=== PATIENT | female | born 1950 | race Native Hawaiian/Other Pacific Islander ===

== ENCOUNTER 2021-03-24 07:56 | Outpatient (CLI) | payer MEDICARE, MEDICAID | END 2021-03-24 07:57 | disposition critical access hospital (66) | LOC: EMS 07:56 | DX: R47.81 Slurred speech (principal); R29.810 Facial weakness; R29.898 Other symptoms and signs involving the musculoskeletal system | CPT/HCPCS: A0425; A0429 ==

== ENCOUNTER 2021-03-24 08:09 | Emergency (ER) | payer MEDICARE, MEDICAID ==
--- NOTE | 2021-03-24 08:13 | ED Physician Documentation ---
PD HPI FOCAL NEURO - Stated complaint Stated Complaint: POSS STROKE - History obtained from History obtained from: Patient, EMS - History of Present Illness Timing - onset: Enter time (714), Today Timing - duration: Minutes Timing - details: Abrupt onset, Still present Severity of deficit: Severe Weakness: Face, Arm, Hand, Leg, Foot, Right Associated symptoms: No: Headache, Nausea / vomiting, Seizure, Syncope, Fall, Head injury, Chest pain, Neck pain, Back pain, Fever Baseline status: positive: A&OX3, ambulatory, indep Similar symptoms before: Has not had sx before Recently seen: Not recently seen - Additional information Additional information: Previously well 74-year-old female with a history of hypertension was cooking this morning when she took a step and developed left right-sided hemiparesis. She was attended to by her daughter who was in the room with her and the ambulance has been summoned to the home. She arrives to the emergency department with a right hemiparesis and with some mild dysarthria. Review of Systems Constitutional: denies: Fever Eyes: denies: Decreased vision Ears: denies: Ear pain Nose: denies: Congestion Throat: denies: Sore throat Cardiac: denies: Chest pain / pressure, Palpitations Respiratory: denies: Dyspnea, Cough GI: denies: Abdominal Pain, Nausea, Vomiting, Constipation, Diarrhea : reports: Frequency. denies: Dysuria Skin: denies: Rash Musculoskeletal: denies: Neck pain, Back pain, Extremity pain Neurologic: reports: Focal weakness. denies: Generalized weakness, Altered mental status, Headache, Head injury, LOC PD PAST MEDICAL HISTORY - Present Medications Home Medications: Ambulatory Orders Medication Instructions Recorded Confirmed Albuterol Sulfate [Albuterol 2 puffs IH QID #1 hfa.aer.ad 11/29/14 Sulfate Hfa] guaiFENesin/CODEINE [Robitussin AC] 10 ml PO Q6H PRN #240 ml 11/29/14 predniSONE [Deltasone] 40 mg PO DAILY 5 Days tablet 11/29/14 Hydrocodone/Acetaminophen [[place] 1 each PO Q6H PRN #15 tablet 06/25/16 5-325 Tablet] Ibuprofen 400 mg PO TID #15 tablet 06/25/16 Amlodipine Besylate [Norvasc] 1 tab PO DAILY 03/24/21 03/24/21 Aspirin EC [Ecotrin] 1 tab PO DAILY 03/24/21 03/24/21 Atorvastatin Calcium [Lipitor] 1 tab PO DAILY 03/24/21 03/24/21 Colchicine 1 tab PO DAILY PRN 03/24/21 03/24/21 Glimepiride [Amaryl] 1 tab PO BID 03/24/21 03/24/21 Pioglitazone [Actos] 1 tab PO DAILY 03/24/21 03/24/21 bisoproloL fumarate [Bisoprolol 1 tab PO DAILY 03/24/21 03/24/21 Fumarate] - Allergies Allergies/Adverse Reactions: Allergies Allergy/AdvReac Type Severity Reaction Status Date / Time Penicillins Allergy Unknown Verified 03/24/21 09:30 PD ED PE NORMAL - General General: Alert and oriented X 3, No acute distress, Well developed/nourished - HEENT HEENT: Atraumatic, PERRL, EOMI - Neck Neck: Supple, no meningeal sign, No bony TTP - Cardiac Cardiac: RRR, No murmur - Respiratory Respiratory: No respiratory distress - Abdomen Abdomen: Soft, Non tender - Back Back: No CVA TTP, No spinal TTP - Extremities Extremities: No deformity, No edema - Neuro Neuro: Alert and oriented X 3, No motor deficit, No sensory deficit, Other (Left jessica-paresis is apparent, withdrawn with quiet speech. ) Eye Opening: Spontaneous Motor: Obeys Commands Verbal: Oriented GCS Score: 15 - Psych Psych: Normal mood, Normal affect NIHSS - Time Time: 08:09 - Level of Consciousness Level of consciousness: (0) Alert, Keenly responsive LOC Questions: (0) Answers both Q's correct LOC Commands: (0) Performs both correctly - Gaze Best Gaze: (0) Normal - Visual Visual: (0) No loss - Facial Palsy Facial Palsy: (1) Minor paralysis - Motor Arms (both separate) Motor Arm (right): (3) No effort against gravity Motor Arm (left): (0) No drift - Motor Legs (both separate) Motor Leg (right): (0) No drift Motor Leg (left): (3) No effort against gravity - Limb Ataxia Limb Ataxia: (2) Present in 2 limbs - Sensory Sensory: (0) Normal - Best Language Best Language: (0) No aphasia - Dysarthria Dysarthria: (1) [id number] dysarthria - Extinction and Inattention (formally neg Extinction and inattention: (1) Visual,tactile,auditory,spatial, or personal inattention - Total Score/Results Total Score/Result: 11 Results - Vitals Vitals: Vital Signs - 24 hr 03/24/21 03/24/21 03/24/21 08:08 08:35 09:27 Temperature 36.6 C Heart Rate 85 82 80 Respiratory 17 18 15 Rate Blood Pressure 185/100 H 183/80 H 166/85 H O2 Saturation 96 98 03/24/21 09:41 Temperature Heart Rate 77 Respiratory 12 Rate Blood Pressure 170/84 H O2 Saturation 97 Oxygen O2 Source Room air - EKG (time done) 0822 Rate: Rate (enter#) (86) Rhythm: LAE Cadet: Anterior hemiblock Intervals: Prolonged QT (borderline) Ischemia: Normal ST segments Compare to prior EKG: Old EKG unavailable Computer interpretation: Agree with computer - Labs Labs: Laboratory Tests 03/24/21 03/24/21 03/24/21 08:40 08:40 08:40 WBC 7.3 RBC 4.28 Hgb 13.3 Hct 40.4 MCV 94.4 MCH 31.1 H MCHC 32.9 RDW 13.4 Plt Count 176 MPV 11.2 H Neut # (Auto) 3.8 Lymph # (Auto) 2.4 [place] # (Auto) 0.5 Eos # (Auto) 0.5 Baso # (Auto) 0.1 Absolute Nucleated RBC 0.00 Nucleated RBC % 0.0 Sodium 134 L Potassium 3.7 Chloride 103 Carbon Dioxide 23 Anion Gap 8.0 BUN 38 H Creatinine 1.8 H Estimated GFR (MDRD) 28 L Glucose 153 H Calcium 8.5 Total Bilirubin 0.8 AST 32 ALT 25 Alkaline Phosphatase 61 Total Protein 7.0 Albumin 3.6 Globulin 3.4 Albumin/Globulin Ratio 1.1 Lipase 61 H Urine Color YELLOW Urine Clarity CLEAR Urine pH 6.0 Ur Specific [place] 1.010 Urine Protein 30 H Urine Glucose (UA) NEGATIVE Urine Ketones NEGATIVE Urine Occult Blood NEGATIVE Urine Nitrite POSITIVE H Urine Bilirubin NEGATIVE Urine Urobilinogen 0.2 (NORMAL) Ur Leukocyte Esterase TRACE H Urine RBC 0-5 Urine WBC 11-25 H Ur Squamous Epith Cells FEW Squamous Urine Bacteria Moderate H Ur Microscopic Review INDICATED Urine Culture Comments INDICATED - Rads (name of study) CTA head Radiology: Prelim report reviewed (Impression: No branch occlusion or hemodynamically significant intracranial arterial stenosis. Mild atherosclerotic narrowing of the left M1 and M2 segments.), EMP read indepedently, See rad report CTA neck Radiology: Prelim report reviewed (Impression: No hemodynamically significant stenosis of the major intraextracranial arterial vasculature. 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 [place] of stenosis including the report of the imaging study was calculated using the NASCET), EMP read indepedently, See rad report Procedures - IVC sono (time) 0850 Bedside IVC sono: IVC measures (cm) (1.46), [place] PD MEDICAL DECISION MAKING - ED course Complexity details: reviewed results, re-evaluated patient, considered differential, d/w patient, d/w family, d/w oracle distribution consultant ED course: 70-year-old female with acute CVA with right-sided hemiparesis and dysarthria has no contraindications to administration of alteplase and she has been interviewed and examined by Dr. Nate Chen neurologist at [facility] neuroscience. We have proceeded with administration of alteplase after obtaining consent from the patient and her granddaughter and we have administered a weight based bolus dose and infusion. Departure - Departure Disposition: 02 Transfer Acute Care Hosp Clinical Impression: Cerebrovascular accident (CVA) Qualifiers: CVA mechanism: unspecified Qualified Code(s): I63.9 - Cerebral infarction, unspecified Condition: Stable
[2021-03-24] MEDS ORDERED: IOVERSOL 320 100 ML VIAL IVP ONE (08:36)
[2021-03-24 08:47] LABS: BASOPHILS # (AUTO) 0.1 10^3/uL (0.0-0.1); BASOPHILS % (AUTO) 1.4 %; EOSINOPHILS # (AUTO) 0.5 10^3/uL (0.0-0.7); EOSINOPHILS % (AUTO) 6.8 %; HCT - HEMATOCRIT 40.4 % (37.0-47.0); HGB - HEMOGLOBIN 13.3 g/dL (12.0-16.0); LYMPHOCYTES # (AUTO) 2.4 10^3/uL (1.5-3.5); LYMPHOCYTES % (AUTO) 32.6 %; MEAN CORPUSCULAR HEMOGLOBIN 31.1 pg (27.0-31.0); MEAN CORPUSCULAR HGB CONC 32.9 g/dL (32.0-36.0); MEAN CORPUSCULAR VOLUME 94.4 fL (81.0-99.0); MEAN PLATELET VOLUME 11.2 fL (7.9-10.8); MONOCYTES # (AUTO) 0.5 10^3/uL (0.0-1.0); MONOCYTES % (AUTO) 7.1 %; NEUTROPHILS # (AUTO) 3.8 10^3/uL (1.5-6.6); NEUTROPHILS % (AUTO) 51.8 %; PLT - PLATELET COUNT 176 10^3/uL (130-450); RED BLOOD COUNT 4.28 10^6/uL (4.20-5.40); RED CELL DISTRIBUTION WIDTH 13.4 % (12.0-15.0); WHITE BLOOD COUNT 7.3 x10^3/uL (4.8-10.8)
[2021-03-24 08:48] LABS: BILIRUBIN,URINE NEGATIVE (NEGATIVE); GLUCOSE, URINE (UA) NEGATIVE (NEGATIVE); KETONES,URINE (UA) NEGATIVE (NEGATIVE); LEUKOCYTE ESTERASE, URINE TRACE (NEGATIVE); NITRITE,URINE POSITIVE (NEGATIVE); OCCULT BLOOD,URINE NEGATIVE (NEGATIVE); PROTEIN,URINE 30 mg/dL (NEGATIVE); UROBILINOGEN,URINE 0.2 (NORMAL) E.U./dL (NORMAL)
[2021-03-24 08:50] LABS: CLARITY,URINE CLEAR (CLEAR)
[2021-03-24 08:58] LABS: ALBUMIN 3.6 g/dL (3.2-5.5); ALBUMIN/GLOBULIN RATIO 1.1 (1.0-2.2); BILIRUBIN,TOTAL 0.8 mg/dL (0.2-1.0); CALCIUM 8.5 mg/dL (8.5-10.3); CREATININE 1.8 mg/dL (0.4-1.0); POTASSIUM 3.7 mmol/L (3.5-5.0)
[2021-03-24 08:59] LABS: BACTERIA,URINE Moderate /HPF (None Seen); RBC,URINE 0-5 /HPF (0-5); SQUAMOUS EPITHELIAL CELL,UR FEW Squamous (<= Few)
--- NOTE | 2021-03-24 09:07 | CT Report ---
PROCEDURE: ANGIO HEAD W/WO INDICATIONS: Right-sided deficit. CONTRAST: IV CONTRAST: Optiray 320 ml: 80 PO CONTRAST: *NO PO CONTRAST TECHNIQUE: Precontrast 4.5 mm thick angled axial sections acquired from the foramen magnum to the vertex. Afte r the administration of intravenous contrast, 1 mm thick sections acquired through the [place] of [place] is. Postcontrast 4.5 mm thick sections then re-acquired from the foramen magnum to the vertex. 3-di mensional sauihlv-ojgxqnfks-gpksltidbu (MIP) and/or volume rendering reformats were acquired of the c entral intracranial vasculature. For radiation dose reduction, the following was used: automated ex posure control, adjustment of mA and/or kV according to patient size. COMPARISON: None FINDINGS: Image quality: Excellent. Anterior circulation: Intracranial internal carotid arteries are patent with no hemodynamic significa nt stenosis. There is some atherosclerotic calcification and plaque in the carotid siphons. The middl e cerebral arteries are patent with no branch occlusion. There is some mildly irregular luminal narro wing of the left M1 and M2 segments presumably due to intracranial atherosclerosis. Anterior cerebral arteries are unremarkable. Posterior circulation: The visualized portions of the distal vertebral arteries are widely patent and normal in caliber. There is mild prominence of the left vertebral artery. The basilar artery is wide ly patent. Posterior cerebral arteries are normal. CSF spaces: Ventricles are normal in size and shape. Basal cisterns are patent. No extra-axial flu id collections. Brain: No midline shift. No intracranial bleeds or masses. [place]-white matter interface appears int act. Skull and face: Calvarium and facial bones appear intact, without suspicious lesions. Sinuses: Visualized sinuses and mastoids are clear. IMPRESSION: No branch occlusion or hemodynamically significant intracranial arterial stenosis. Mild atherosclerotic narrowing of the left M1 and M2 segments. Reviewed by: Emilio Encinas MD on 03/24/2021 9:06 AM PDT Approved by: Emilio Encinas MD on 03/24/2021 9:06 AM PDT Station ID: [id number]
[2021-03-24] MEDS ORDERED: WATER FOR INJECTION STERILE IV STA ×2 (09:11→09:15)
[2021-03-24] MEDS ORDERED: ALTEPLASE IV STA ×2 (09:11→09:15)
[2021-03-24] MEDS ORDERED: ALTEPLASE 100 MG VIAL IVP STA (09:16)
--- NOTE | 2021-03-24 09:16 | CT Report ---
PROCEDURE: ANGIO NECK W INDICATIONS: Left neck pain, left-sided facial droop CONTRAST: IV CONTRAST: Optiray 320 ml: 80 PO CONTRAST: *NO PO CONTRAST TECHNIQUE: After the administration of intravenous contrast, 1.5 mm axial sections acquired from the aortic arch to the [place] of [place]. Coronal 3-D maximum intensity projection (MIP) and/or volume rendering ref ormats were then performed. For radiation dose reduction, the following was used: automated exposur e control, adjustment of mA and/or kV according to patient size. COMPARISON: None. FINDINGS: Image quality: Excellent. Carotid system: Standard three-vessel aortic arch anatomy. Atherosclerotic calcification and plaque i n the aortic arch and origins of the arch branch vessels without hematoma dynamically significant yan nosis. Normal course, caliber, and contour of the common carotid arteries. Atherosclerotic plaque and calcification are present in the distal common carotid arteries and carotid bifurcations without monserrat ges dynamically significant stenosis. Mild atherosclerotic narrowing of the extracranial internal car otid artery origins, without hemodynamically significant stenosis. Intracranial carotid arteries appe ar widely patent. There is a small pseudoaneurysm of the right internal carotid artery (series 2 imag e [id number]). Posterior circulation: The origins of the vertebral arteries appear patent. The more superior porti ons of the vertebral arteries demonstrate normal course and caliber. They join to form a normal appe aring basilar artery. Soft tissues: Visualized neck soft tissues demonstrate no suspicious abnormalities. The thyroid is normal in size and there are no incidental findings. Bones: No suspicious bony lesions. Visualized cervical spine appears normally aligned. IMPRESSION: No hemodynamically significant stenosis of the major extracranial arterial vasculature. 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 Estimate of stenosis included in the report of the imaging study was calculated using the NASCET meth od. Reviewed by: Emilio Encinas MD on 03/24/2021 9:15 AM PDT Approved by: Emilio Encinas MD on 03/24/2021 9:15 AM PDT Station ID: [id number]
[2021-03-24 10:34] LABS: CORONAVIRUS 229E-RESP PCR NOT DETECTED; CORONAVIRUS HKU1-RESP PCR NOT DETECTED; CORONAVIRUS NL63-RESP PCR NOT DETECTED; CORONAVIRUS OC43-RESP PCR NOT DETECTED; HUMAN METAPNEUMOVIRUS NOT DETECTED; INFLUENZA A- RESP PCR PANEL NOT DETECTED; INFLUENZA B - RESP PCR PANEL NOT DETECTED; PARAINFLUENZA VIRUS 1 NOT DETECTED; PARAINFLUENZA VIRUS 2 NOT DETECTED; RHINOVIRUS/ENTEROVIRUS NOT DETECTED; SARS-CoV-2 -RESP PCR PANEL NOT DETECTED
[2021-03-24 10:35] LABS: B. PARAPERTUSSIS- RESP PCR PAN NOT DETECTED; B. PERTUSSIS- RESP PCR PANEL NOT DETECTED; C. PNEUMONIAE- RESP PCR PANEL NOT DETECTED; M. PNEUMONIAE- RESP PCR PANEL NOT DETECTED; PARAINFLUENZA VIRUS 3 NOT DETECTED; PARAINFLUENZA VIRUS 4 NOT DETECTED; RSV- RESP PCR PANEL NOT DETECTED
[2021-03-24 13:38] VITALS: BP 157/78
== END 2021-03-24 13:41 | disposition short-term general hospital (02) ==
LOC: EDSEX → EDBD → ED 08:09 → MERGE 08:09 → ED 13:41
DX: I63.9 Cerebral infarction, unspecified (principal); G81.91 Hemiplegia, unspecified affecting right dominant side; R47.1 Dysarthria and anarthria; R29.711 NIHSS score 11; Z20.822 Contact with and (suspected) exposure to COVID-19
CPT/HCPCS: 36415; 70496; 70498; 80053; 81001; 83690; 85025; 87086; 87181; 87631; 93005; 96365; 96376; 99284; 99285; J2997; Q9967; 0202U; 81003

== ENCOUNTER 2021-07-10 20:04 | Outpatient (CLI) | payer MEDICARE, MEDICAID | END 2021-07-10 20:05 | disposition EMS.NT | LOC: EMS 20:04 | DX: M79.601 Pain in right arm (principal) ==

== ENCOUNTER 2021-11-30 14:30 | Emergency (ER) | payer MEDICARE, MEDICAID ==
[2021-11-30 14:46] VITALS: BP 116/57
[2021-11-30] MEDS ORDERED: PROPARACAINE 0.5% OPHTH DROPS 15 ML EACHEYE STA (15:00)
--- NOTE | 2021-11-30 15:04 | ED Physician Documentation ---
History of Present Illness - Stated complaint Stated Complaint: BLURRED VISION, BOTH EYE PX - Chief complaint Chief Complaint: Heent - Additonal information Additional information: 71-year-old female presents emergency department for evaluation of bilateral eye discharge itchiness and eyelid swelling. She reports that she went to her primary care doctor little more than a week ago and was seen for watery itchy eyes. She was prescribed daily for an eyedrops however despite using then she has had worsening blurry vision and now some purulent drainage from her eyes. At baseline she is in a wheelchair and wears corrective lenses. She denies any loss of vision or visual field deficits. No eye pain. Review of Systems Constitutional: denies: Fever, Chills Eyes: reports: Decreased vision, Discharge, Irritation. 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 - Present Medications Home Medications: Ambulatory Orders Medication Instructions Recorded Confirmed Albuterol Sulfate [Albuterol 2 puffs IH QID #1 hfa.aer.ad 11/29/14 03/24/21 Sulfate Hfa] Hydrocodone/Acetaminophen [[place] 1 each PO Q6H PRN #15 tablet 06/25/16 03/24/21 5-325 Tablet] Amlodipine Besylate [Norvasc] 1 tab PO DAILY 03/24/21 03/24/21 Aspirin EC [Ecotrin] 1 tab PO DAILY 03/24/21 03/24/21 Atorvastatin Calcium [Lipitor] 1 tab PO DAILY 03/24/21 03/24/21 Colchicine 1 tab PO DAILY PRN 03/24/21 03/24/21 Glimepiride [Amaryl] 1 tab PO BID 03/24/21 03/24/21 Pioglitazone [Actos] 1 tab PO DAILY 03/24/21 03/24/21 bisoproloL fumarate [Bisoprolol 1 tab PO DAILY 03/24/21 03/24/21 Fumarate] - Allergies Allergies/Adverse Reactions: Allergies Allergy/AdvReac Type Severity Reaction Status Date / Time Penicillins Allergy Unknown Verified 11/30/21 14:46 - Social History Does the pt smoke?: No Smoking Status: Never smoker Does the pt drink ETOH?: No Does the pt have substance abuse?: No - Immunizations Immunizations are current?: Yes - POLST Patient has POLST: No PD ED PE EXPANDED - General General: Alert, No acute distress, Well developed/nourished - Eyes Eyes: Visual acuity - see nn, PERRL, Eyelid swelling, Eyelid erythema, Exudate (Clear watery drainage), Other (Fluorescein negative bilaterally. Mild erythema and swelling of the upper eyelids. EOMI intact. No eye pain elicited. Clear anterior chamber.). No: Nl conjunctiva/sclera, Injected conj/sclera Results - Vitals Vitals: Vital Signs - 24 hr 11/30/21 14:38 Temperature 36.7 C Heart Rate 73 Respiratory 14 Rate Blood Pressure 116/57 L O2 Saturation 95 Oxygen O2 Source Room air PD MEDICAL DECISION MAKING - ED course Complexity details: re-evaluated patient, considered differential, d/w patient ED course: 71-year-old female who is diabetic and has a history of CVA with right-sided weakness presents to the emergency department with eye drainage and eyelid swelling. She started taking ketoprofen eyedrops about a week ago for itchy eyes thought to be allergic. Her fluorescein stain was negative bilaterally and she had clear anterior chambers. PERRLA and EOMI. I suspect she had a mild allergic reaction to the ketamine drops and have discussed continued use of those. She did have some mild watery exudate here in the ER but the son reports purulent exudate at home. Will prescribe erythromycin ointment. I did do a limited funduscopic exam without obvious findings of retinal hemorrhage. She has no loss of vision or visual field deficits however given the language barrier, history of CVA with poor functional capacity it was a limited exam. She does have poor visual acuity with her corrective lenses bilaterally but it is not clear what her baseline is. Patient does have a primary care provider as well as an slab off mill tender. She is advised close follow-up with the slab off mill tender she may benefit from further evaluation to include optometry, change in prescription. Departure - Departure Disposition: 01 Home, Self Care Clinical Impression: Blurry vision, bilateral Condition: Stable Record reviewed to determine appropriate education?: Yes Follow-Up: Garry Farrar MD [Primary Care Provider] - Comments: Rebecca was seen in the emergency department today for blurry vision in both her eyes as well as swelling of both her upper eyelids. It is possible that she is having a mild allergic reaction to the cutis and drops that were prescribed recently. I recommend a cool compress over both of her eyes to help with the eyelid swelling but they do not look infected. The fluorescein stain at bedside did not show any cuts or abrasions. It is likely that she is having worsening vision given her history of diabetes. It is important that she follow-up with her slab off mill tender or greenhouse technician in the next week for repeat eye exam. You were given a medicated eye ointment here in the ER that I recommend you use once or twice a day on her eye to help with the discomfort and discharge. If at any point she has sudden loss of vision or partial loss of vision in one or both of her eyes she should return immediately to the ER for second evaluation.
[2021-11-30] MEDS ORDERED: ERYTHROMYCIN OPHTH OINT 1 GM TUBE EACHEYE STA (15:18)
== END 2021-11-30 15:32 | disposition home or self-care (01) ==
LOC: ED 14:30
DX: H53.8 Other visual disturbances (principal); Z99.3 Dependence on wheelchair; I10 Essential (primary) hypertension
CPT/HCPCS: 99281; 99282; J3490

== ENCOUNTER 2023-03-03 17:44 | Outpatient (CLI) | payer MEDICARE, MEDICAID | END 2023-03-03 23:59 | disposition EMS.NT | LOC: EMS 17:44 | DX: Z03.89 Encounter for observation for other suspected diseases and conditions ruled out (principal) ==

== ENCOUNTER 2023-03-26 01:31 | Outpatient (CLI) | payer MEDICARE, MEDICAID | END 2023-03-26 23:59 | disposition EMS.NT | LOC: EMS 01:31 | DX: R45.1 Restlessness and agitation (principal) ==

== ENCOUNTER 2023-08-24 09:06 | Outpatient (CLI) | payer MEDICARE, MEDICAID ==
[2023-08-24 19:14] LABS: ESTIMATED AVERAGE GLUCOSE 148 mg/dL (70-100); HEMOGLOBIN A1c% 6.8 % (4.27-6.07)
[2023-08-24 19:33] LABS: ALBUMIN 4.1 g/dL (3.2-5.5); ALBUMIN/GLOBULIN RATIO 1.5 (1.0-2.2); ALKALINE PHOSPHATASE 80 IU/L (42-121); ALT ALANINE AMINOTRANSFERASE 26 IU/L (10-60); AST ASPARTATE AMINOTRANSFERASE 28 IU/L (10-42); BILIRUBIN,TOTAL 0.5 mg/dL (0.2-1.0); BUN - BLOOD UREA NITROGEN 23 mg/dL (6-20); CALCIUM 9.2 mg/dL (8.5-10.3); CARBON DIOXIDE - CO2 27 mmol/L (21-32); CHLORIDE 106 mmol/L (101-111); CHOL/HDL RATIO 2.5 (<4.4); CHOLESTEROL 145 mg/dL; CREATININE 1.2 mg/dL (0.6-1.3); GFR - MDRD 44 (>89); GLUCOSE 183 mg/dL (74-104); HDL CHOLESTEROL 59 mg/dL; LDL CHOLESTEROL,CALCULATED 56 mg/dL; LDL/HDL RATIO 0.9 (<4.4); POTASSIUM 4.2 mmol/L (3.5-4.5); SODIUM 139 mmol/L (135-145); TOTAL PROTEIN 6.9 g/dL (6.4-8.9); TRIGLYCERIDES 151 mg/dL (48-352); VLDL CHOLESTEROL 30 mg/dL
[2023-08-24 19:35] LABS: BASOPHILS # (AUTO) 0.1 10^3/uL (0.0-0.1); BASOPHILS % (AUTO) 0.8 %; EOSINOPHILS # (AUTO) 0.4 10^3/uL (0.0-0.7); EOSINOPHILS % (AUTO) 5.3 %; LYMPHOCYTES # (AUTO) 1.4 10^3/uL (1.5-3.5); MEAN CORPUSCULAR HEMOGLOBIN 30.2 pg (27.0-31.0); MEAN CORPUSCULAR HGB CONC 31.3 g/dL (32.0-36.0); MEAN CORPUSCULAR VOLUME 96.8 fL (81.0-99.0); MEAN PLATELET VOLUME 11.2 fL (7.9-10.8); MONOCYTES # (AUTO) 0.6 10^3/uL (0.0-1.0); MONOCYTES % (AUTO) 7.2 %; NEUTROPHILS # (AUTO) 5.7 10^3/uL (1.5-6.6); NEUTROPHILS % (AUTO) 69.3 %; PLT - PLATELET COUNT 252 10^3/uL (130-450); RED BLOOD COUNT 4.96 10^6/uL (4.20-5.40); RED CELL DISTRIBUTION WIDTH 14.1 % (12.0-15.0); WHITE BLOOD COUNT 8.2 x10^3/uL (4.8-10.8)
[2023-08-24 19:48] LABS: CREATININE,URINE 31.9 mg/dL; MICROALBUM/CREATININE RATIO,UR 1266.5 ug/mg (<30.0); MICROALBUMIN,URINE 40.4 mg/dL
[2023-08-24 19:50] LABS: THYROID STIMULATING HORMONE 2.44 uIU/mL (0.34-5.60)
== END 2023-08-24 09:07 | disposition home or self-care (01) ==
LOC: LAB.N 09:06
PROVIDERS: ATTEND Nurse Practitioner Family
DX: E11.69 Type 2 diabetes mellitus with other specified complication (principal); E78.5 Hyperlipidemia, unspecified; I10 Essential (primary) hypertension
CPT/HCPCS: 36415; 80053; 80061; 82043; 82570; 83036; 83721; 84443; 85025